=== PATIENT | female | born 1985 | race Caucasian/White ===

== ENCOUNTER 2021-06-28 13:07 | Outpatient (REF) | payer OTHER, SELFPAY ==
[2021-06-28 14:24] LABS: Vitamin D 25-OH Total 18.4 ng/mL (>30)
[2021-06-28 14:26] LABS: Erythrocyte Sedimentation Rate 59 MM/HR (0-20)
[2021-06-30 13:31] LABS: Anti Nuclear Antibody Screen NEGATIVE (NEGATIVE)
[2021-07-04 22:57] LABS: JCV Antibody POSITIVE
== END 2021-06-28 13:08 | disposition home or self-care (01) ==
LOC: HO.LAB 13:07
PROVIDERS: PCP Internal Medicine; Visit Provider Psychiatry & Neurology Neurology
DX: G35 Multiple sclerosis (principal)
CPT/HCPCS: 36415; 82306; 85652; 86038; 86039; 86711

== ENCOUNTER 2022-01-22 10:41 | Outpatient (REF) | payer OTHER, SELFPAY ==
--- NOTE | 2022-01-22 12:25 | ECG_ITS ---
Test Reason : G35 Blood Pressure : / mmHG Vent. Rate : 078 BPM Atrial Rate : 078 BPM P-R Int : 172 ms QRS Dur : 078 ms QT Int : 360 ms P-R-T Axes : 032 061 032 degrees QTc Int : 410 ms Normal sinus rhythm Septal infarct , age undetermined Abnormal ECG No previous ECGs available Referred By: Janessa Zimmerman Electronically Signed By:EPIFANIO CERRATO
[2022-01-22 12:41] LABS: MANUAL DIFF FLAG NO
[2022-01-22 12:48] LABS: Basophils Percent Auto 0.4 % (0-2); Eosinophils Absolute Auto 0.1 X10*3/uL (0.0-0.4); Eosinophils Percent Auto 0.9 % (0-4); Hematocrit 36.8 % (37.0-47.0); Hemoglobin 12.2 g/dl (12.0-16.0); Imm Gran Abs Auto 0.03 X10*3/uL (0.00-0.03); Imm Gran Pct Auto 0.4 % (0.0-0.4); Lymphocytes Absolute Auto 1.1 X10*3/uL (1.2-4.9); Lymphocytes Percent Auto 14.2 % (20-40); Mean Corpuscular HGB Conc 33.2 g/dl (31.0-35.0); Mean Corpuscular Hemoglobin 27.1 pg (27.0-33.0); Mean Corpuscular Volume 81.6 fL (80.0-98.0); Mean Platelet Volume 9.5 fL (9.4-12.3); Monocytes Absolute Auto 0.3 X10*3/uL (0.1-1.2); Monocytes Percent Auto 4.2 % (2-11); Neutrophils Absolute Auto 6.1 x10*3/uL (2.0-8.3); Neutrophils Percent Auto 79.9 % (45-73); Platelet Count 324 X10*3/uL (160-400); Red Blood Count 4.51 X10*6/uL (4.20-5.50); Red Cell Distribution Width 13.6 % (11.0-16.0); White Blood Count 7.6 X10*3/uL (4.8-10.8)
[2022-01-22 12:59] LABS: Estimated Average Glucose 100 mg/dL; Hemoglobin A1c % 5.1 %
[2022-01-22 13:17] LABS: Alanine Aminotransferase 17 U/L (0-31); Albumin Level 4.2 g/dL (3.5-5.0); Alkaline Phosphatase 68 U/L (39-117); Anion Gap 12 (12-20); Aspartate Amino Transferase 14 U/L (5-31); Bilirubin Total 0.5 mg/dL (0.0-1.0); Blood Urea Nitrogen 18 mg/dL (9-16); C Reactive Protein 2.61 mg/dL (< or = 0.50); Calcium 9.3 mg/dL (8.4-10.2); Carbon Dioxide 25 mmol/L (22-29); Chloride 106 mmol/L (96-108); Cholesterol 154 mg/dL; Estimated Glomerular Filt Rate > 60; Glucose Random 86 mg/dL (60-115); HDL Cholesterol 39 mg/dL; Iron 71 mcg/dL (30-160); LDL Cholesterol Calculated 106 mg/dl; Percent Iron Saturation 19 % (15-50); Potassium 4.1 mmol/L (3.3-5.1); Sodium 139 mmol/L (135-145); Total Iron Binding Capacity 382 mcg/dL (228-428); Total Protein 7.6 g/dL (6.5-8.0); Triglycerides 48 mg/dL; Unsaturated Iron Binding 311 ug/dL
[2022-01-22 13:40] LABS: Ferritin 40 ng/mL (10-122); Insulin 18 uU/mL (2-29); TSH reflex Free T4 0.82 uIU/mL (0.32-4.0); Vitamin D 25-OH Total 36.4 ng/mL (>30)
[2022-01-22 14:14] LABS: Vitamin B12 429 pg/mL (200-900)
[2022-01-23 11:27] LABS: H Pylori Breath Test Positive (Negative)
[2022-01-24 11:02] LABS: Calcium (PTHI) 9.5 mg/dL (8.6-10.2); PTHI 75 pg/mL (16-77)
[2022-01-25 06:32] LABS: Zinc 94 mcg/dL (60-130)
[2022-01-26 22:07] LABS: Vitamin A 36 mcg/dL (38-98)
[2022-01-27 13:41] LABS: Vitamin B1 8 nmol/L (8-30)
== END 2022-01-22 10:42 | disposition home or self-care (01) ==
LOC: HO.LAB 10:41
PROVIDERS: PCP Internal Medicine; Visit Provider Physician Assistant
DX: Z01.818 Encounter for other preprocedural examination (principal); G35 Multiple sclerosis; E66.01 Morbid (severe) obesity due to excess calories
CPT/HCPCS: 36415; 80053; 80061; 82306; 82607; 82728; 82746; 83013; 83036; 83525; 83540; 83970; 84425; 84443; 84590; 84630; 85025; 86140; 93005; 99202; 99211

== ENCOUNTER → 2022-02-12 14:53 | Outpatient (BNVA) | payer OTHER, SELFPAY | PROVIDERS: PCP Internal Medicine; Referring Provider Physician Assistant; Visit Provider Counselor Mental Health | DX: F43.20 Adjustment disorder, unspecified (principal); E66.01 Morbid (severe) obesity due to excess calories | CPT/HCPCS: 90791 ==

== ENCOUNTER → 2022-02-19 08:22 | Outpatient (REF) | payer OTHER, SELFPAY ==
--- NOTE | 2022-02-19 08:26 | CA_ITS ---
Transthoracic Echocardiogram Patient (Last, First, Middle): Mando Fuentes, Gender: Female Date of : 1985 Age: 36 Procedure Date: 02/19/2022 Procedure Type: Transthoracic Echocardiogram Location: OP Height: 152.4 cm Weight: 133.36 kg BSA: 2.20 m2 Heart Rate: bpm BP: 134 / 80 mmHg Office Automation Technician: Referring MD: Janessa Zimmerman PA-C Symptoms: R06.02 SOB, R94.31 ABNORMAL EKG Study Quality: Adequate with definity ECG Rhythm: Sinus Conclusions: - The left ventricular systolic function is normal. The visually estimated ejection fraction is between 60-65%. - No obvious valvular pathology seen on this study. Findings Procedure Information Contrast agent, definity, is being given per protocol without apparent complications. Left Ventricle Normal left ventricular cavity size. There is mildly increased left ventricular wall thickness. The left ventricular systolic function is normal. The visually estimated ejection fraction is between 60-65%. There is no evidence of regional wall motion abnormalities. Diastolic function is normal for age. Right Ventricle Normal right ventricular cavity size and systolic function. Atria Both atria are normal in size. Aortic Valve The aortic valve was not well visualized. The aortic valve structure and function is likely normal. There is no aortic valve regurgitation. Mitral Valve The mitral valve appears normal. There is trace mitral valve regurgitation. There is no mitral valve stenosis. Pulmonic Valve The pulmonic valve is likely normal. Tricuspid Valve There is trace tricuspid valve regurgitation. There is no evidence of pulmonary hypertension. Great Vessels The asc aorta is normal in size. Venous The inferior vena cava is normal in size and collapses greater than 50% with inspiration. Pericardium/Pleural There is no evidence of pericardial effusion. Prior Study Comparison No prior study available for comparison. Recommendations, Care & Conclusions No obvious valvular pathology seen on this study. Measurements 2D Linear Measurements IVSd: 1.11 0.6-0.9/0.6-1.0 cm LVIDd: 4.81 3.9-5.3/4.2-5.9 cm LVIDd Index: 2.19 2.4-3.2/2.2-3.1 cm/m2 LVIDs: 3.07 2.0-3.6 cm LVPWd: 1.05 0.7-1.1 cm Ao Root: 2.70 2.1-3.5 cm LA Diam: 4.30 2.7-3.8/3.0-4.0 cm LAIDs Index: 1.95 1.5-2.3 cm/m2 LV Mass: 236.42 67-162/88-224 g LV Mass Index: 107.46 43-95/49-115 g/m2 LVOT Diam: 2.20 3.0+(-)1.3 cm 2D Systolic Function EF 4C: 72.80 >55% EF 2C: 59.90 >55% EF BiP: 66.80 >55% Mitral Valve MV Pk E: 1.14 MV PK A: 0.70 MV Decel Time: 160.00 E/A: 1.60 E'Lateral: 10.20 E'Medial: 8.05 E/E' Med: 14.20 E/E' Lat: 11.20 PHT: 47.00 MVA PHT: 4.68 Decel [place]: 7.17 Aortic Valve AoV Pk Dileep: 1.45 AoV Mn Dileep: 1.03 AoV VTI: 0.38 AoV Pk Grad: 8.00 Aov Mn Grad: 5.00 EMILEE Cont.VTI: 2.52 LVOT LVOT Pk Dileep: 1.09 LVOT Mn Dileep: 0.69 LVOT VTI: 0.26 LVOT Pk Grad: 5.00 LVOT Mn Grad: 2.00 LVOT Diam: 2.20 LVOT Area: 3.80 Diastolic Function MV Pk E: 1.14 MV Pk A: 0.70 E/A: 1.60 E'Medial: 8.05 E/E' Med: 14.20 E' Laterial: 10.20 E/E' Lat: 11.20 Right Ventricle TAPSE (mm): 25.00 TVS' Dileep: 14.00 Tricuspid Valve TR Pk Dileep: 2.27 TR Pk Grad: 21.00 RA Press: 3.00 RVSP: 24.00 Great Vessels Aorta Ao Root-2D: 2.70 2.0-3.7 cm Ao Asc: 2.80 2.1-3.4 cm Pulmonary Valve PV Pk Dileep: 1.30 Peak PV Grad: 7.00 Updated in Other Vendor System with Status of Final Yair Ott MD electronically signed on 02/19/2022 12:18:55 PM with status of Final
== END ==
LOC: HO.CARD 08:22
PROVIDERS: PCP Internal Medicine; Visit Provider Physician Assistant
DX: Z01.818 Encounter for other preprocedural examination (principal); R94.31 Abnormal electrocardiogram [ECG] [EKG]; G35 Multiple sclerosis; E66.01 Morbid (severe) obesity due to excess calories
CPT/HCPCS: 93306; Q9957

== ENCOUNTER → 2022-02-21 13:29 | Outpatient (BNVA) | payer OTHER, SELFPAY | PROVIDERS: PCP Internal Medicine; Referring Provider Physician Assistant; Visit Provider Dietitian, Registered | DX: E66.01 Morbid (severe) obesity due to excess calories (principal); Z68.43 Body mass index [BMI] 50.0-59.9, adult | CPT/HCPCS: 97802 ==

== ENCOUNTER 2022-04-30 16:15 | Outpatient (REF) | payer OTHER, SELFPAY ==
[2022-04-30 16:28] LABS: MANUAL DIFF FLAG NO
[2022-04-30 16:59] LABS: Basophils Percent Auto 0.3 % (0-2); Eosinophils Absolute Auto 0.1 X10*3/uL (0.0-0.4); Hematocrit 35.7 % (37.0-47.0); Hemoglobin 11.6 g/dl (12.0-16.0); Imm Gran Abs Auto 0.02 X10*3/uL (0.00-0.03); Imm Gran Pct Auto 0.3 % (0.0-0.4); Lymphocytes Percent Auto 15.1 % (20-40); Mean Corpuscular HGB Conc 32.5 g/dl (31.0-35.0); Mean Corpuscular Hemoglobin 26.2 pg (27.0-33.0); Mean Corpuscular Volume 80.6 fL (80.0-98.0); Mean Platelet Volume 9.7 fL (9.4-12.3); Monocytes Absolute Auto 0.4 X10*3/uL (0.1-1.2); Monocytes Percent Auto 5.8 % (2-11); Neutrophils Absolute Auto 5.2 x10*3/uL (2.0-8.3); Neutrophils Percent Auto 77.5 % (45-73); Platelet Count 339 X10*3/uL (160-400); Red Blood Count 4.43 X10*6/uL (4.20-5.50); Red Cell Distribution Width 13.6 % (11.0-16.0); White Blood Count 6.8 X10*3/uL (4.8-10.8)
[2022-04-30 17:28] LABS: Alanine Aminotransferase 18 U/L (0-31); Albumin Level 4.2 g/dL (3.5-5.0); Alkaline Phosphatase 81 U/L (39-117); Aspartate Amino Transferase 16 U/L (5-31); Bilirubin Direct < 0.2 mg/dL (0.0-0.5); Bilirubin Total 0.2 mg/dL (0.0-1.0); Total Protein 7.5 g/dL (6.5-8.0)
== END 2022-04-30 16:16 | disposition home or self-care (01) ==
LOC: HO.LAB 16:15
PROVIDERS: PCP Internal Medicine; Visit Provider Psychiatry & Neurology Neurology
DX: G35 Multiple sclerosis (principal)
CPT/HCPCS: 36415; 80076; 85025